=== PATIENT | male | born 1955 | race Caucasian/White ===

== ENCOUNTER → 2020-08-23 | Outpatient (CLI) | payer OTHER ==
[~2020-08-23] MED LIST: ACET-716 PO; AMLO10TA PO; D 1010004 PO; INSUH10VL SC; LANTINJ4 SC; METF-818 PO; PROBCAP14 PO; SIMV40TA20 PO; VICT18IN2 SQ; VITMTA PO
== END ==
LOC: M LABSMTC 10:24
PROVIDERS: ATTEND Anesthesiology
DX: Z20.828 Contact with and (suspected) exposure to other viral communicable diseases (principal); Z11.59 Encounter for screening for other viral diseases